=== PATIENT | male | born 1975 | race Two or more races ===

== ENCOUNTER 2025-01-12 16:15 | Emergency (ER) | payer MEDICAID, SELFPAY ==
[2025-01-12 16:17] VITALS: BMI 28.3
[2025-01-12 16:21] VITALS: BP 177/121; PULSE 85; RESP 16; TEMP 36.7; O2SAT 95
--- NOTE | 2025-01-12 16:28 | EKG_ITS ---
[facility] Test Date: 2025-01-12 Pat Name: TERESO JOHNSON Department: Room: - Gender: Male Human Resources Operations Director: : 1975 Requested By: Briseida Lehman Order Number: [id number] Reading MD: Briseida Lehman Measurements Intervals [place] Rate: 83 P: 45 MA: 142 QRS: 5 QRSD: 86 T: 67 QT: 387 QTc: 456 Interpretive Statements SINUS RHYTHM Compared to ECG 01/24/2024 11:33:51 No significant changes /store/S0/[id number]
--- NOTE | 2025-01-12 16:29 | EDNOTE_ITS ---
ED Medical Clearance RME/HPI General Chief complaint: Medical Clearance Stated complaint: MEDICAL CLEARANCE Time Seen by Provider: 01/12/25 16:28 Arrival date/time: 01/12/25 16:15 RME / HPI RME / HPI Narrative: 49-year-old male patient was brought in by law enforcement for medical clearance. Apparently patient was incarcerated today while in the long-term prior to booking, was noted to have blood pressure that is above 180 according to them. Currently patient is denying any chest pain no neck pain no headache no abdominal pain. Patient is ambulatory. Patient never had blood pressure problem according to him. Related Information Previous Rx's ?Medication ?Instructions ?Recorded hydrocodone 7.5 mg-ibuprofen 200 1 tab PO Q8H PRN pain #14 tabs 11/02/ mg tablet ibuprofen 600 mg tablet 600 mg PO Q6H PRN pain #30 t abs 01/24/24 Allergies Allergy/AdvReac Type Severity Reaction Status Date / Time No Known Allergies Allergy Verified 01/12/25 16:17 Review of Systems Review of Systems Narrative Review of Systems: Review of system reviewed and within normal limits except mentioned in HPI ED Exam Narrative Physical exam: VITAL SIGNS: Reviewed. GENERAL APPEARANCE: Alert and interactive, follows commands, no acute distress, HEAD AND FACE: Non-traumatic. ENT: PERRL, pink conjunctivitis, eyelid no trauma, Mucous membrane moist. NECK: Supple, nontender, no nuchal rigidity. CHEST: No tenderness, no crepitus, no paradoxical movement, no retractions. LUNGS: Clear, well ventilated, symmetric, no rales, no wheezing, no ronchi, no stridor, good breath sounds bilaterally. HEART: Regular rate, regular rhythm, no murmur, no gallops. ABDOMEN: Soft, positive bowel sounds, nondistended, no guarding, nontender, no rebound, no masses, RECTAL: Deferred. GENITAL: Deferred. NEUROLOGICAL: Gross motor function intact sensory function intact, Appropriate for age. MUSCULOSKELETAL: low back nontender, full range of motion. EXTREMITIES: Nontender, full range of motion. SKIN: Color pink, dry, no rash, no lacerations, no abrasions, no contusions. LYMPHATICS: Deferred. Course Quality Measures none Orders Category Date Time Status EKG (ED Only) Stat Exams 01/12/25 16:28 Draft NIFEdipine [Procardia] Med 01/12/25 16:28 Discontinued 10 mg PO X1 ONE Vital Signs Vital signs: Vital Signs Temperature 98.0 F 01/12/25 16:21 Pulse Rate 85 01/12/25 16:21 Respiratory Rate 16 01/12/25 16:21 Blood Pressure 177/121 H 01/12/25 16:21 Pulse Oximetry (%) 95 01/12/25 16:21 Oxygen Delivery Method Room Air 01/12/25 16:21 Medical Clearance [facility] Narrative [facility] Narrative:: 49-year-old male patient was brought in by law enforcement for medical clearance. Apparently patient was incarcerated today while in the long-term prior to booking, was noted to have blood pressure that is above 180 according to them. Currently patient is denying any chest pain no neck pain no headache no abdominal pain. Patient is ambulatory. Patient never had blood pressure problem according to him. Initial blood pressure was noted to be 177/121. Patient is denying any complaints. EKG was noted to be normal sinus rhythm, ventricular rate of 63 bpm, no ST segment elevation depression noted.. Patient was given Procardia p.o. 10 mg x 1, s/p pressure was noted to be 159/104 heart rate 100, denies any complaints. Patient is medically cleared for incarceration Patient data External records reviewed:: None Clinical information provided by:: patient Social determinants that could affect healthcare access:: none Patient has the following chronic illnesses:: None How is presenting disease/condition affected by chronic disease/condition?: no chronic disease Evaluation data The following diagnostics were reviewed and interpreted by me:: EKG tracing(s) Lab and/or radiology exams considered but not ordered:: None Interpretation Summary: See results [facility] Medications / Prescriptions Medications or Prescriptions considered but not ordered:: None Medication administrations:: Medication Administration History Discontinued Medications Nifedipine (Nifedipine 10 Mg Capsule) 10 mg PO X1 ONE Stop: 01/12/25 16:29 Last Admin: 01/12/25 16:35 Dose: 10 mg Documented By: DO Procardia Consultations Consultation(s) initiated? (list below): No Diagnosis Medical Clearance Differential Diagnosis: other (Medical clearance for incarceration, elevated blood pressure) Most likely diagnosis given after review of the tests above:: Medical clearance for incarceration, elevated blood pressure with no diagnosis of hypertension Admission Indicated Admission indicated?: not indicated Admission Request Was there a request for admission?: No Disposition Plan Disposition Plan: Discharge Discharge Attestation Discharge Attestation: Patient condition: Stable Discharge Plan Plan Patient Disposition: Usp/Court/Law Discharge Disposition comment: Stable Prescriptions/Referrals Prescriptions/Med Rec: No Action hydrocodone-ibuprofen 7.5-200 mg tablet 1 tab PO Q8H MDD 3 PRN (Reason: pain) Qty: 14 0RF ibuprofen 600 mg tablet 600 mg PO Q6H PRN (Reason: pain) Qty: 30 0RF Referrals: No Primary/Family,Physician [Primary Care Provider] - In 1 week Problem List Clinical Impression: Medical clearance for incarceration Patient/Caregiver Discharge Instructions Discharge Activity: activity as tolerated Education Materials: Reducing Your Health Risks ... Additional Instructions: Thank you for the opportunity for serving you today. You are stable for discharged . You are advised to: Follow-up with your PCP in 1 to 2 days once you get out of long-term regarding your elevated blood pressure today Return to ED for worsening of symptoms Print Language: Belarusian PA/RAMYA Supervising Physician PA/COUNSELING PSYCHOLOGIST Supervising Physician: MD Delonte
[2025-01-12 16:35] VITALS: BP 177/121; PULSE 85
[2025-01-12 17:07] VITALS: BP 159/104; PULSE 100
== END 2025-01-12 17:15 ==
PROVIDERS: Emergency Provider Family Medicine
DX: Z02.89 Encounter for other administrative examinations (principal)
CPT/HCPCS: 99283; A9270